=== PATIENT | male | born 1965 | race Caucasian/White ===

== ENCOUNTER 2021-03-08 16:32 | Emergency (ER) | payer SELFPAY ==
[~2021-03-08] VITALS: Ht 182.9 cm; Wt 90.7 kg
[2021-03-08 17:11] VITALS: BP 163/109
--- NOTE | 2021-03-08 18:10 | NUR ---
RUBEN NEAL EXAMINIING PT IN TENT
[2021-03-08] MEDS ORDERED: DICYCLOMINE HCL LIQUID 20 MG, ALUMINUM HYD/MAG/SIMETHICONE 30 ML, LIDOCAINE VISCOUS 2% ... PO ONE ×3 (18:20)
[2021-03-08] MEDS ORDERED: ALUMINUM HYD/MAG/SIMETHICONE 30 ML UDC ONE (18:26)
[2021-03-08] MEDS ORDERED: DICYCLOMINE HCL LIQUID 10 MG/5 ML UDC ONE (18:26)
--- NOTE | 2021-03-08 18:30 | NUR ---
55 Y/O MALE C/O NAUSEA/VOMITING SINCE LAST NIGHT. PT STATES BURNING CHEST PAIN UPON BURPING. DENIES DIARRHEA. STATES 8/10 PAIN. MEDHX: DENIES NKA
--- NOTE | 2021-03-08 18:31 | NUR ---
NOVEL SWAB COLLECTED AND SENT TO LAB
[2021-03-08] MEDS ORDERED: OMEP40EC24 PO (19:08)
[2021-03-08] MEDS ORDERED: MAG10ORA PO (19:08)
[2021-03-08 19:13] VITALS: BP 163/109
--- NOTE | 2021-03-08 19:13 | NUR ---
Patient discharged with v/s stable. Written and verbal after care instructions given and explained. Patient alert, oriented and verbalized understanding of instructions. Ambulatory with steady gait. All questions addressed prior to discharge. ID band removed. Patient advised to follow up with PMD. Rx of MYLANTA MAXIMUM STRENGTH PKT AND PRILOSEC given. Patient educated on indication of medication including possible reaction and side effects. Opportunity to ask questions provided and answered.
== END 2021-03-08 19:13 | disposition home or self-care (01) ==
LOC: MED 16:32
DX: K21.9 Gastro-esophageal reflux disease without esophagitis (principal); Z20.822 Contact with and (suspected) exposure to COVID-19
CPT/HCPCS: 99283; U0003